=== PATIENT | female | born 1975 | race Caucasian/White ===

== ENCOUNTER → 2016-10-19 | Outpatient (CLI) | payer OTHER ==
--- NOTE | 2016-10-19 11:51 | KCIC ---
Bilateral digital screening mammograms with CAD: HISTORY Routine screening COMPARISON Comparison is made to previous examinations dated 10/17/2015 and 10/11/2014. FINDINGS Breast density category C. The skin and nipples show no abnormalities. No abnormal lymph nodes are seen in the axilla. The breast parenchyma shows heterogeneous density. There are no dominant masses, suspicious calcifications or architectural distortions. IMPRESSION No evidence of malignancy. Recommend routine annual mammographic screening. This study was interpreted with the benefit of Computerized Aided Detection (CAD). Mammography is not 100% sensitive in detecting breast cancer. Therefore, a self breast exam and a clinical breast exam are very important. A negative mammogram does not negate a clinically suspicious finding and should not result in a delay in biopsying a clinically suspicious abnormality. BI-RADS category 1. Negative. This patient's information has been entered into a reminder system for the patient to be notified with the results of this examination and a target date for her next mammograms. Electronically signed by: Darby Delgado MD (October 19, 2016 11:50:41)
== END | disposition home or self-care (01) ==
LOC: KCIC MAMMO 10:18
PROVIDERS: ATTEND Obstetrics & Gynecology
DX: Z12.31 Encounter for screening mammogram for malignant neoplasm of breast (principal)
CPT/HCPCS: G0202; 77067

== ENCOUNTER → 2016-11-02 | Outpatient (CLI) | payer OTHER ==
--- NOTE | 2016-11-03 08:27 | KCIC ---
PROCEDURE Complete pelvic ultrasound. HISTORY Dyspareunia. TECHNIQUE Real-time ultrasound imaging of the pelvis using transabdominal and transvaginal window is performed. COMPARISON None. FINDINGS Uterus is surgically absent. No obvious abnormality of the vaginal cuff. No pelvic free fluid. No evidence of adnexal mass. Normal blood flow in the ovaries. Small follicles are seen bilaterally. The right ovary measures 2.8 x 2.2 x 3.1 cm. The left ovary measures 2.8 x 1.6 x 2.9 cm. IMPRESSION Unremarkable pelvic ultrasound. Electronically signed by: Donis Garrido MD (November 03, 2016 08:25:32)
== END | disposition home or self-care (01) ==
LOC: KCIC US 15:40
PROVIDERS: ATTEND Obstetrics & Gynecology
DX: N94.10 Unspecified dyspareunia (principal)
CPT/HCPCS: 76830; 76856

== ENCOUNTER → 2017-11-01 | Outpatient (CLI) | payer BC | END | disposition home or self-care (01) | LOC: KCIC MAMMO 16:50 | DX: Z12.31 Encounter for screening mammogram for malignant neoplasm of breast (principal) | CPT/HCPCS: 77067 ==

== ENCOUNTER → 2018-11-14 | Outpatient (CLI) | payer BC ==
--- NOTE | 2018-11-15 17:23 | KCIC ---
Bilateral digital screening mammograms with 3-D tomosynthesis: Reason for examination: Routine screening. Comparison is made to previous studies dated 11/01/2017 and 10/19/2016. Bilateral mammograms in CC and oblique projections were obtained with 2-D imaging and 3-D tomosynthesis imaging on a Siemens Inspiration unit and reviewed on the workstation. Interpretation was made with the benefit of CAD. The skin and nipples show no abnormalities. No abnormal axillary lymph nodes are seen. The breast parenchyma is extremely dense. (Breast density: Category D.) There appear to be multiple small circumscribed nodules present bilaterally which probably represent cysts. Further evaluation with ultrasound is recommended. There are no suspicious calcifications. Impression: Small circumscribed nodules bilaterally consistent with probable cysts. Recommend further evaluation with ultrasound. Your patient's mammogram demonstrates that she has dense breast tissue (breast density category C or D), which could hide abnormalities, and if she has other risk factors for breast cancer that have been identified, she might benefit from supplemental screening tests that may be suggested by you as her ordering physician. Dense breast tissue, in and of itself, is a relatively common condition. Therefore, this information is not provided to cause undue concern, but rather to raise your awareness and to promote discussion with your patient regarding the presence of other risk factors, in addition to dense breast tissue. Your patient's mammography results will be sent to her. BI-RAD Category 0: Incomplete. Needs additional imaging evaluation. "Our facility is accredited by the [employer] Mammography [employer]." This patient's information has been entered into a reminder system for the patient to be notified with the results of her examination and a target date for the next mammogram. Electronically signed by: Maria A Delgado MD (11/15/2018 5:21 PM) [id number]
== END | disposition home or self-care (01) ==
LOC: KCIC MAMMO 17:08
PROVIDERS: ATTEND Obstetrics & Gynecology
DX: Z12.31 Encounter for screening mammogram for malignant neoplasm of breast (principal)
CPT/HCPCS: 77063; 77067

== ENCOUNTER → 2018-11-22 | Outpatient (CLI) | payer BC ==
--- NOTE | 2018-11-22 10:32 | KCIC ---
BREAST BILATERAL Clinical Indication: Abnormal screening mammogram. Comparison: Bilateral mammogram 11/14/2018 at 11/01/2017. TECHNIQUE: Real-time ultrasound imaging of the right and left breast is performed in all 4 quadrants, retroareolar, and in the axilla. Findings: There are multiple small cysts in the right and left breast. In the right breast 8:00 position 4 cm from the nipple, there is a probable complicated cyst measuring 7 x 2 mm. At the 9:00 position retroareolar there is a 5 x 3 mm complicated cyst. There is no abnormal right axillary lymph node. In the left breast 3:00 position retroareolar there is a 4 mm hypoechoic mass that may be a complicated cyst or tiny fibroadenoma. At the 4:00 position 4 cm from the nipple, there are 2 adjacent probable cysts each measuring about 5 mm. At the 9:00 position 5 cm from the nipple, there is a 4 mm hypoechoic mass with slightly irregular margins that could be a complicated cyst. There is no abnormal left axillary lymph node. IMPRESSION: 1. There are multiple cysts and probable complicated cysts in the right and left breast. Recommend six-month follow-up bilateral breast ultrasound. 2. BI-RADS category 3, probably benign. Electronically signed by: Donis Garrido MD (11/22/2018 10:29 AM) [id number]
== END | disposition home or self-care (01) ==
LOC: KCIC US 08:07
PROVIDERS: ATTEND Obstetrics & Gynecology
DX: N60.01 Solitary cyst of right breast (principal); N60.02 Solitary cyst of left breast
CPT/HCPCS: 76641

== ENCOUNTER → 2019-06-20 | Outpatient (CLI) | payer BC ==
--- NOTE | 2019-06-20 10:45 | KCIC ---
Bilateral breast ultrasound: Reason for examination: 6 month follow-up for nodules. Comparison is made to previous study dated 11/22/2018. Bilateral whole breast ultrasound including evaluation of all 4 quadrants and the retroareolar and axillary regions of both breasts was performed. The right breast continues to show presence of multiple small anechoic and hypoechoic lesions consistent with cystic and fibrocystic nodules with the largest lesion located at the 11:00 position 2 cm from the nipple measuring 1.4 cm in greatest dimension. No solid or suspicious-appearing nodules are seen. No abnormal appearing lymph nodes are seen in the right axilla. The left breast also continues to show multiple small hypoechoic fibrocystic type lesions which shows some interval improvement. No suspicious nodules are seen. No abnormal appearing lymph nodes are seen in the axilla. IMPRESSION: Multiple cystic lesions in the right breast. Multiple fibrocystic lesion in the left breast. No suspicious lesion seen. Recommend routine mammographic follow-up. BI-RADS Category 2: Benign. "Our facility is accredited by the [employer] Mammography [employer]." This patient's information has been entered into a reminder system for the patient to be notified with the results of her examination and a target date for the next mammogram. Electronically signed by: Maria A Delgado MD (06/20/2019 10:42 AM) [id number]
== END | disposition home or self-care (01) ==
LOC: KCIC US 07:58
PROVIDERS: ATTEND Obstetrics & Gynecology
DX: N64.89 Other specified disorders of breast (principal)
CPT/HCPCS: 76641

== ENCOUNTER → 2020-01-22 | Outpatient (CLI) | payer BC ==
--- NOTE | 2020-01-22 14:07 | KCIC ---
Bilateral digital screening mammograms with 3-D tomosynthesis: Reason for examination: Routine screening. Comparison is made to previous studies dated 11/14/2018 and 11/01/2017. Bilateral mammograms in CC and oblique projections were obtained with 2-D imaging and 3-D tomosynthesis imaging on a Siemens Inspiration unit and reviewed on the workstation. Interpretation was made with the benefit of CAD. The skin and nipples show no abnormalities. No abnormal axillary lymph nodes are seen. The breast parenchyma is extremely dense. (Breast density: Category D.) There continue to be small circumscribed lesion seen in the right breast consistent with history of cysts. There are no new dominant masses, suspicious calcifications or architectural distortion. Impression: No evidence of malignancy. Recommend routine screening. Your patient's mammogram demonstrates that she has dense breast tissue (breast density category C or D), which could hide abnormalities, and if she has other risk factors for breast cancer that have been identified, she might benefit from supplemental screening tests that may be suggested by you as her ordering physician. Dense breast tissue, in and of itself, is a relatively common condition. Therefore, this information is not provided to cause undue concern, but rather to raise your awareness and to promote discussion with your patient regarding the presence of other risk factors, in addition to dense breast tissue. Your patient's mammography results will be sent to her. BI-RAD Category 2: Benign. "Our facility is accredited by the [employer] Mammography [employer]." This patient's information has been entered into a reminder system for the patient to be notified with the results of her examination and a target date for the next mammogram. Electronically signed by: Maria A Delgado MD (01/22/2020 2:05 PM) [id number]
== END | disposition home or self-care (01) ==
LOC: KCIC MAMMO 08:03
PROVIDERS: ATTEND Obstetrics & Gynecology
DX: Z12.31 Encounter for screening mammogram for malignant neoplasm of breast (principal)
CPT/HCPCS: 77063; 77067

== ENCOUNTER → 2021-01-27 | Outpatient (CLI) | payer BC ==
--- NOTE | 2021-01-27 18:29 | KCIC ---
Bilateral digital screening mammograms with 3-D tomosynthesis: Reason for examination: Routine screening. Comparison is made to previous studies dated 11/14/2018 and 11/01/2017. Bilateral mammograms in CC and oblique projections were obtained with 2-D imaging and 3-D tomosynthes is imaging on a Siemens Inspiration unit and reviewed on the workstation. Interpretation was made deja landaverde the benefit of CAD. The skin and nipples show no abnormalities. No abnormal axillary lymph nodes are seen. The breast par enchyma is extremely dense. (Breast density: Category D.) There continue to be small circumscribed le lia seen in the right breast consistent with history of cysts. There are no new dominant masses, tonia picious calcifications or architectural distortion. Impression: No evidence of malignancy. Recommend routine screening. Your patient's mammogram demonstrates that she has dense breast tissue (breast density category C or D), which could hide abnormalities, and if she has other risk factors for breast cancer that have bee n identified, she might benefit from supplemental screening tests that may be suggested by you as her ordering physician. Dense breast tissue, in and of itself, is a relatively common condition. Therefo re, this information is not provided to cause undue concern, but rather to raise your awareness and t o promote discussion with your patient regarding the presence of other risk factors, in addition to d ense breast tissue. Your patient's mammography results will be sent to her. BI-RAD Category 2: Benign. "Our facility is accredited by the [employer] Mammography [employer]." This patient's information has been entered into a reminder system for the patient to be notified wit h the results of her examination and a target date for the next mammogram. Electronically signed by: Jason Liang DO (01/27/2021 6:27 PM) [email or web address]
== END ==
LOC: KCIC MAMMO 15:54
PROVIDERS: ATTEND Obstetrics & Gynecology
DX: Z12.31 Encounter for screening mammogram for malignant neoplasm of breast (principal)
CPT/HCPCS: 77063; 77067